=== PATIENT | male | born 1960 | race Caucasian/White ===

== ENCOUNTER → 2018-04-13 | Outpatient (CLI) | payer OTHER ==
[~2018-04-13] MED LIST: ALPRAZOLAM 0.50.5 M1; ASPIRIN EC325 M1; CLONAZEPAM 0.50.5 M1; NORCO 5-325 TA1 EACH PO; NORVASC 5 MG TAB5 MG; PRILOSEC40 MG; VYVANSE20 MG; WELLBUTRIN XL300 M1
== END ==
LOC: CAT 13:16
DX: Z13.6 Encounter for screening for cardiovascular disorders (principal); E78.00 Pure hypercholesterolemia, unspecified; I25.10 Atherosclerotic heart disease of native coronary artery without angina pectoris

== ENCOUNTER 2020-09-30 15:18 | Emergency (ER) | payer OTHER ==
[~2020-09-30] VITALS: Ht 185.4 cm; Wt 92.1 kg
[2020-09-30 15:53] LABS: ABSOLUTE NEUTROPHILS 4.3 thou/uL (1.4-8.2); BASOPHILS 0.8 % (0.0-2.0); HEMOGLOBIN 15.2 gm/dL (14.0-18.0); LYMPHOCYTES 24.6 % (24.0-44.0); MCH 30.2 pg (26.0-34.0); MCHC 33.8 g/dL (28.0-37.0); MCV 89.3 fL (80.0-100.0); MONOCYTES 5.4 % (1.0-8.0); PLATELET COUNT 211 thou/uL (150-400); POLYS 66.2 % (36.0-66.0); RBC 5.04 mil/uL (4.50-6.00); RDW 13.6 % (10.5-14.5); WBC 6.5 thou/uL (4.0-11.0)
[2020-09-30 16:05] LABS: CALCIUM 9.9 mg/dL (8.5-10.1); CREATININE 1.3 mg/dL (0.7-1.3)
[2020-09-30 16:14] LABS: ALBUMIN 3.8 g/dL (3.4-5.0); TOTAL BILIRUBIN 0.9 mg/dL (0.2-1.0); TOTAL PROTEIN 6.9 g/dL (6.4-8.2)
[2020-09-30 18:37] VITALS: BP 142/91
--- NOTE | 2020-10-01 06:50 | EKG ---
[place] [address] [place] [address] ELECTROCARDIOGRAM REPORT Name: TORRESCHELSEA [facility] [id number] Admission: 09/30/20 Attend Phys: Discharge: 09/30/20 Date of : 58 Report #: [id number] [facility] ED Test Date: 2020-09-30 Test Time: 15:26:42 Pat Name: CHELSEA TORRES Department: Room: Gender: [employer]: cw : 1960 Requested By: Cyndi Lester Order Number: [id number] MD: Randy Palacios Measurements Intervals Marydel Rate: 97 P: 73 WI: 153 QRS: 10 QRSD: 118 T: 33 QT: 391 QTc: 497 Interpretive Statements Sinus rhythm Ventricular bigeminy Incomplete right bundle branch block No previous ECG available for comparison Electronically Signed On 10-01-2020 6:49:47 CDT by Randy Palacios [email or web address] <ELECTRONICALLY SIGNED> By: Randy Palacios MD, [facility] 10/01/20 [id number] 1526 Randy Palacios MD, FACC /EPI
== END 2020-09-30 18:37 | disposition home or self-care (01) ==
LOC: ER 15:18
PROVIDERS: Student in an Organized Health Care Education/Training Program
DX: R00.8 Other abnormalities of heart beat (principal); R55 Syncope and collapse; I10 Essential (primary) hypertension; Z79.2 Long term (current) use of antibiotics; Z79.82 Long term (current) use of aspirin; Z79.899 Other long term (current) drug therapy

== ENCOUNTER → 2020-11-03 | Outpatient (CLI) | payer OTHER | LOC: SJCVCIMAG 09:38 | PROVIDERS: ATTEND Internal Medicine Cardiovascular Disease | DX: I49.3 Ventricular premature depolarization (principal); E78.5 Hyperlipidemia, unspecified; R00.2 Palpitations ==

== ENCOUNTER 2020-11-07 16:21 | Emergency (ER) | payer OTHER ==
[~2020-11-07] VITALS: Ht 185.4 cm; Wt 92.5 kg
[2020-11-07 16:28] VITALS: BP 119/83
[2020-11-07] MEDS ORDERED: FLEXERIL PO (18:36)
== END 2020-11-07 18:37 | disposition home or self-care (01) ==
LOC: ER 16:21
DX: M54.2 Cervicalgia (principal); I10 Essential (primary) hypertension; Z79.82 Long term (current) use of aspirin; Z79.899 Other long term (current) drug therapy; V43.52XA Car driver injured in collision with other type car in traffic accident, initial encounter; Y93.19 Activity, other involving water and watercraft; Y92.89 Other specified places as the place of occurrence of the external cause; Y99.8 Other external cause status